=== PATIENT | male | born 1940 | race Caucasian/White ===

== ENCOUNTER 2024-06-06 16:42 | Outpatient (CLI) | payer BC, SELFPAY | END 2024-06-06 16:43 | disposition home or self-care (01) | LOC: LKVREF 16:44 | PROVIDERS: Visit Provider Physician Assistant | DX: S30.861A Insect bite (nonvenomous) of abdominal wall, initial encounter (principal) | CPT/HCPCS: 86618 ==

== ENCOUNTER 2024-06-26 09:00 | Outpatient (CLI) | payer BC, SELFPAY | END 2024-06-26 09:01 | disposition home or self-care (01) | LOC: NFLDREF 06-27 11:24 | PROVIDERS: PCP Family Medicine; Referring Provider Family Medicine; Visit Provider Family Medicine | DX: I10 Essential (primary) hypertension (principal); N40.0 Benign prostatic hyperplasia without lower urinary tract symptoms; I71.21 Aneurysm of the ascending aorta, without rupture; E11.9 Type 2 diabetes mellitus without complications; I48.91 Unspecified atrial fibrillation; I25.10 Atherosclerotic heart disease of native coronary artery without angina pectoris; R60.9 Edema, unspecified; L03.116 Cellulitis of left lower limb | CPT/HCPCS: 80053; 80061; 82043; 82570; 83880; G0103 ==

== ENCOUNTER 2024-07-21 18:57 | Outpatient (CLI) | payer BC, SELFPAY | END 2024-07-21 18:58 | disposition home or self-care (01) | LOC: LKVREF 19:00 | PROVIDERS: PCP Family Medicine; Visit Provider Family Medicine | DX: R79.89 Other specified abnormal findings of blood chemistry (principal) | CPT/HCPCS: 80076 ==

== ENCOUNTER 2024-08-01 10:40 | Outpatient (CLI) | payer MEDICARE, SELFPAY ==
--- NOTE | 2024-08-01 11:00 | CRLHL7_ITS ---
For Patients: As a result of the Century Cures Act, medical imaging exams and procedure reports are released immediately into your electronic medical record. You may view this report before your referring provider. If you have questions, please contact your health care provider. INDICATION Pulmonary nodules. Aneurysm of the ascending aorta. TECHNIQUE: Noncontrast CT images of the chest. COMPARISON: None. FINDINGS: Solid 3 mm nodule right middle lobe (series 3 image 85). Solid 4 mm nodule in the lingula (series 3, image 85). Mild scarring/atelectasis in the lower lobes and lingula. No focal consolidation, pleural effusion, or pneumothorax. The heart size is normal. No pericardial effusion. Coronary artery atherosclerotic calcifications. No mediastinal or hilar lymphadenopathy. Cholecystectomy. Multilevel thoracic spondylosis. No aggressive osseous lesions. IMPRESSION: 1. No acute abnormality in the chest. 2. Small pulmonary nodules. Follow-up chest CT could be considered in 12 months if patient has risk factors for malignancy. 3. Borderline aneurysmal dilatation of the ascending thoracic aorta measuring 3.9 cm. Please note that all CT scans at this facility use dose modulation, iterative reconstruction, and/or weight-based dosing when appropriate to reduce radiation dose to as low as reasonably achievable. Dictated by Haris Salinas MD @ 08/02/2024 8:14:35 PM (Electronically Signed)
== END 2024-08-01 10:41 | disposition home or self-care (01) ==
LOC: CT 10:41
PROVIDERS: PCP Family Medicine; Visit Provider Family Medicine
DX: R91.8 Other nonspecific abnormal finding of lung field (principal); I71.21 Aneurysm of the ascending aorta, without rupture
CPT/HCPCS: 71250

== ENCOUNTER 2024-10-20 18:35 | Outpatient (CLI) | payer MEDICARE, SELFPAY | END 2024-10-20 18:36 | disposition home or self-care (01) | PROVIDERS: PCP Family Medicine; Visit Provider Family Medicine | DX: D64.9 Anemia, unspecified (principal); R53.83 Other fatigue; Z13.29 Encounter for screening for other suspected endocrine disorder | CPT/HCPCS: 82607; 82728; 84443; 84590 ==

== ENCOUNTER 2024-10-27 12:49 | Outpatient (CLI) | payer MEDICARE, SELFPAY ==
--- NOTE | 2024-10-27 13:00 | CRLHL7_ITS ---
For Patients: As a result of the Cures Act, medical imaging exams and procedure reports are released immediately into your electronic medical record. You may view this report before your referring provider. If you have questions, please contact your health care provider. Examination: US abdominal aorta Indication: History of ascending aortic aneurysm Technique: Franks scale and color Doppler images of the aorta and common iliac arteries are obtained. Comparison: CT chest 08/01/2024 Findings: Proximal aorta: 3.0 x 2.4 cm Mid aorta: 2.3 x 2.8 cm Distal aorta: 2.0 x 2.1 cm Right common iliac artery: 1.4 x 1.6 cm Left common iliac artery: 1.7 x 1.6 cm Impression: No abdominal aortic aneurysm. Dictated by Avery Gutierres MD @ 10/28/2024 5:53:48 AM (Electronically Signed)
--- NOTE | 2024-10-27 13:45 | CRLHL7_ITS ---
For Patients: As a result of the Century Cures Act, medical imaging exams and procedure reports are released immediately into your electronic medical record. You may view this report before your referring provider. If you have questions, please contact your health care provider. INDICATION: Amnesia. TECHNIQUE: Multiplanar multisequence MR imaging of the brain without intravenous contrast. COMPARISON: None. FINDINGS: Moderate cortically predominant cerebral volume loss. No mass effect or midline shift. Scattered FLAIR hyperintensities in the supratentorial white matter, typical for mild chronic microvascular ischemic changes. Small chronic infarctions posterior parietal lobes. No intracranial hemorrhage or pathologic extra-axial fluid collection. No diffusion restriction to suggest acute infarction. The major arterial flow voids at the skullbase are preserved. Thinning of the ocular lenses. Mild paranasal sinus mucosal thickening. Minimal left mastoid fluid. IMPRESSION: 1. No acute intracranial abnormality. 2. 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 3. Moderate diffuse cerebral volume loss and mild chronic microvascular ischemic changes. Dictated by Haris Salinas MD @ 10/27/2024 5:28:03 PM (Electronically Signed)
== END 2024-10-27 12:50 | disposition home or self-care (01) ==
LOC: US 12:50
PROVIDERS: PCP Family Medicine; Visit Provider Family Medicine
DX: R41.3 Other amnesia (principal); Z86.73 Personal history of transient ischemic attack (TIA), and cerebral infarction without residual deficits; I67.82 Cerebral ischemia; Z86.79 Personal history of other diseases of the circulatory system; Z13.6 Encounter for screening for cardiovascular disorders
CPT/HCPCS: 70551; 76706

== ENCOUNTER 2025-01-19 18:38 | Outpatient (CLI) | payer MEDICARE, SELFPAY | END 2025-01-19 18:39 | disposition home or self-care (01) | PROVIDERS: PCP Family Medicine; Visit Provider Family Medicine | DX: I10 Essential (primary) hypertension (principal); D51.9 Vitamin B12 deficiency anemia, unspecified | CPT/HCPCS: 80053; 82607 ==

== ENCOUNTER 2025-05-08 14:14 | Outpatient (CLI) | payer MEDICARE, SELFPAY | END 2025-05-08 14:15 | disposition home or self-care (01) | PROVIDERS: PCP Family Medicine; Visit Provider Family Medicine | DX: R79.89 Other specified abnormal findings of blood chemistry (principal); D64.9 Anemia, unspecified; I10 Essential (primary) hypertension; N40.0 Benign prostatic hyperplasia without lower urinary tract symptoms; E11.9 Type 2 diabetes mellitus without complications; I48.91 Unspecified atrial fibrillation; R60.9 Edema, unspecified; N52.9 Male erectile dysfunction, unspecified; R39.9 Unspecified symptoms and signs involving the genitourinary system | CPT/HCPCS: 82607; 83735; 84153; 84154 ==

== ENCOUNTER 2025-05-28 11:37 | Outpatient (CLI) | payer MEDICARE, SELFPAY ==
--- NOTE | 2025-05-28 13:03 | P.ANES_ITS ---
Anesthesia Charges Start Date/Time Anesthesia Start Date: 05/28/25 Anesthesia Start Time: 12:30 Stop Date/Time Anesthesia Stop Date: 05/28/25 Anesthesia Stop Time: 13:05 Summary Extremes of Age - Over 70 or under 1: FIRE PROTECTION INSPECTOR Coding CPT Codes CPT Codes: ANES LWR INTST NDSC NOS - 73471 ([id number]) P3 - PATIENT W/SEVERE SYS DISEASE, QK - COBBLER SOLE 2-4 CNCRNT ANES PROC, QX - FIRE PROTECTION INSPECTOR SVC W/ MD MED DIRECTION Additional Codes: Summary - Extremes of Age - Over 70 or under 1: FIRE PROTECTION INSPECTOR ([id number])
--- NOTE | 2025-05-28 13:03 | W.ANESCHARGE ---
Anesthesia Charges Start Date/Time Anesthesia Start Date: 05/28/25 Anesthesia Start Time: 12:30 Stop Date/Time Anesthesia Stop Date: 05/28/25 Anesthesia Stop Time: 13:05 Summary Extremes of Age - Over 70 or under 1: CLIENT SERVICE REPRESENTATIVE Coding CPT Codes CPT Codes: ANES LWR INTST NDSC NOS - 33982 ([id number]) P3 - PATIENT W/SEVERE SYS DISEASE, QK - VEHICLE BODY BUILDER 2-4 CNCRNT ANES PROC, QX - CLIENT SERVICE REPRESENTATIVE SVC W/ MD MED DIRECTION Additional Codes: Summary - Extremes of Age - Over 70 or under 1: CLIENT SERVICE REPRESENTATIVE ([id number])
--- NOTE | 2025-05-28 13:15 | P.ANES_ITS ---
Anesthesia Charges Start Date/Time Anesthesia Start Date: 05/28/25 Anesthesia Start Time: 12:30 Stop Date/Time Anesthesia Stop Date: 05/28/25 Anesthesia Stop Time: 13:05 Summary Extremes of Age - Over 70 or under 1: MDA Coding CPT Codes CPT Codes: ANES LWR INTST NDSC NOS - 16740 ([id number]) P3 - PATIENT W/SEVERE SYS DISEASE, QK - SPIKE MAKER 2-4 CNCRNT ANES PROC, QX - MUCKER OPERATOR SVC W/ MD MED DIRECTION Additional Codes: Summary - Extremes of Age - Over 70 or under 1: MDA ([id number])
--- NOTE | 2025-05-28 13:15 | W.ANESCHARGE ---
Anesthesia Charges Start Date/Time Anesthesia Start Date: 05/28/25 Anesthesia Start Time: 12:30 Stop Date/Time Anesthesia Stop Date: 05/28/25 Anesthesia Stop Time: 13:05 Summary Extremes of Age - Over 70 or under 1: MDA Coding CPT Codes CPT Codes: ANES LWR INTST NDSC NOS - [id number] ([id number]) P3 - PATIENT W/SEVERE SYS DISEASE, QK - SITE ENGINEER 2-4 CNCRNT ANES PROC, QX - DRY ICE MACHINE OPERATOR SVC W/ MD MED DIRECTION Additional Codes: Summary - Extremes of Age - Over 70 or under 1: MDA ([id number])
== END 2025-05-28 11:38 | disposition home or self-care (01) ==
LOC: OP CLINIC 11:38
PROVIDERS: PCP Family Medicine; Visit Provider Surgery
DX: R19.4 Change in bowel habit (principal); D64.9 Anemia, unspecified; D12.0 Benign neoplasm of cecum; D12.2 Benign neoplasm of ascending colon; D12.4 Benign neoplasm of descending colon; D12.7 Benign neoplasm of rectosigmoid junction
CPT/HCPCS: 00811; 45385; 88305; 99100; J2704

== ENCOUNTER 2025-08-10 13:28 | Outpatient (CLI) | payer MEDICARE, SELFPAY | END 2025-08-10 13:29 | disposition home or self-care (01) | LOC: LKVREF 13:29 | PROVIDERS: PCP Family Medicine; Visit Provider Family Medicine | DX: D64.9 Anemia, unspecified (principal); E11.9 Type 2 diabetes mellitus without complications; I10 Essential (primary) hypertension; I48.91 Unspecified atrial fibrillation | CPT/HCPCS: 80048; 82043; 82570 ==

== ENCOUNTER 2025-08-17 10:44 | Outpatient (CLI) | payer MEDICARE, SELFPAY ==
--- NOTE | 2025-08-17 11:00 | CRLHL7_ITS ---
For Patients: As a result of the Century Cures Act, medical imaging exams and procedure reports are released immediately into your electronic medical record. You may view this report before your referring provider. If you have questions, please contact your health care provider. INDICATION: Lung cancer screening. History of smoking. TECHNIQUE: Low-dose lung cancer screening non-contrast CT chest. Dose reduction techniques were used. COMPARISON: CT chest August 01, 2024 FINDINGS: NODULES: Stable few solid less than 6 millimeter nodules in bilateral lung lin. Right upper lobe nodule of 5 millimeter (2/23). Left upper lobe nodule of 3 millimeter (2/41). Left middle lobe nodule of 3 millimeter (2/79). Right lung base nodule of 6 millimeter (2/90). No new nodule. LUNGS AND PLEURA: No effusion or pneumothorax. Scattered subsegmental atelectasis. No patchy infiltrate. MEDIASTINUM: Cardiomegaly and coronary artery calcification. CORONARY ARTERY CALCIFICATION: Present LIMITED UPPER ABDOMEN: Status post cholecystectomy. Small hiatal hernia. MUSCULOSKELETAL: Multilevel degenerative changes of the spine. IMPRESSION: 1. Stable less than 6 millimeters scattered solid pulmonary nodules. No new nodule. LUNG-RADS CATEGORY: 2: Benign. (<1% risk of malignancy) -Perifissural nodule(s): <10 mm -Solid nodule(s): <6 mm on baseline screening; or new nodule <4 mm -Subsolid nodule(s): <6 mm on baseline screening -Ground glass nodule(s): <30 mm; or greater than or equal to 30 mm and unchanged or slowly growing -Category 3 or 4 nodules that are unchanged for greater than or equal to 3 months RADIOLOGIST RECOMMENDATION: ([place] 1/2) Continue annual screening, if eligible, with low-dose CT chest in 12 months. Please note that all CT scans at this facility use dose modulation, iterative reconstruction, and/or weight-based dosing when appropriate to reduce radiation dose to as low as reasonably achievable. Dictated by Brian Boswell MD @ 08/18/2025 7:28:20 AM (Electronically Signed)
== END 2025-08-17 10:45 | disposition home or self-care (01) ==
LOC: CT 10:46
PROVIDERS: PCP Family Medicine; Visit Provider Family Medicine
DX: Z12.2 Encounter for screening for malignant neoplasm of respiratory organs (principal); R91.8 Other nonspecific abnormal finding of lung field; Z87.891 Personal history of nicotine dependence
CPT/HCPCS: 71250

== ENCOUNTER 2025-10-05 18:36 | Outpatient (CLI) | payer MEDICARE, SELFPAY | END 2025-10-05 18:37 | disposition home or self-care (01) | PROVIDERS: PCP Family Medicine; Visit Provider Family Medicine | DX: R60.9 Edema, unspecified (principal); D64.9 Anemia, unspecified; I48.91 Unspecified atrial fibrillation; I10 Essential (primary) hypertension | CPT/HCPCS: 80053; 82728; 83540; 83550; 83880 ==

== ENCOUNTER 2025-10-14 09:43 | Outpatient (CLI) | payer MEDICARE, SELFPAY | END 2025-10-14 09:44 | disposition home or self-care (01) | LOC: RAD 09:44 | PROVIDERS: PCP Family Medicine; Visit Provider Family Medicine | DX: I35.9 Nonrheumatic aortic valve disorder, unspecified (principal); I51.7 Cardiomegaly; I35.1 Nonrheumatic aortic (valve) insufficiency; I48.91 Unspecified atrial fibrillation; R60.9 Edema, unspecified | CPT/HCPCS: 93306 ==

== ENCOUNTER 2025-10-29 09:06 | Outpatient (CLI) | payer MEDICARE, SELFPAY | END 2025-10-29 09:07 | disposition home or self-care (01) | LOC: NFLDREF 11-02 14:08 | PROVIDERS: PCP Family Medicine; Referring Provider Family Medicine; Visit Provider Family Medicine | DX: R79.89 Other specified abnormal findings of blood chemistry (principal); I10 Essential (primary) hypertension | CPT/HCPCS: 80048; 80061 ==